=== PATIENT | male | born 1960 | race Caucasian/White ===

== ENCOUNTER 2019-05-09 12:11 | Emergency (ER) | payer MEDICAID, OTHER, SELFPAY ==
[~2019-05-09] VITALS: Ht 170.2 cm; Wt 69.4 kg
[2019-05-09 12:14] VITALS: BP 138/70
[2019-05-09 13:05] LABS: BASOPHILS # (AUTO) 0.03 x10^3/uL (0-0.1); BASOPHILS % (AUTO) 0 % (0-1); EOSINOPHILS # (AUTO) 0.02 x10^3/uL (0-0.4); EOSINOPHILS % (AUTO) 0 % (1-7); LYMPHOCYTES # (AUTO) 0.96 x10^3/uL (1-3.4); LYMPHOCYTES % (AUTO) 9 % (22-44); MD NO; MEAN CORPUSCULAR HEMOGLOBIN 31.1 pg (27.5-34.5); MEAN CORPUSCULAR HGB CONC 33.2 g/dL (33.2-36.2); MEAN CORPUSCULAR VOLUME 93.5 fL (81-97); MEAN PLATELET VOLUME 8.7 fL (7.4-10.4); MONOCYTES # (AUTO) 0.68 x10^3/uL (0.2-0.8); MONOCYTES % (AUTO) 6 % (2-9); NEUTROPHILS # (AUTO) 9.51 x10^3/uL (1.8-6.8); NEUTROPHILS % (AUTO) 85 % (42-75); PLATELET COUNT 206 x10^3/uL (130-400); RED BLOOD COUNT 4.68 x10^6/uL (4.38-5.82); RED CELL DISTRIBUTION WIDTH 12.9 % (9.4-14.8)
--- NOTE | 2019-05-09 13:15 | NUR ---
caddymaster: Pt ambulatory to ED room 23 from lobby at this time
[2019-05-09 13:16] LABS: ALBUMIN 3.5 g/dL (3.4-5.0); ANION GAP 7 mmol/L (5-15); CALCIUM 8.9 mg/dL (8.5-10.1); CHLORIDE 105 mmol/L (98-107); CREATININE 1.04 mg/dL (0.7-1.3)
[2019-05-09 13:19] LABS: TROPONIN I < 0.015 ng/mL (0.000-0.045)
--- NOTE | 2019-05-09 14:50 | NUR ---
radiosonde specialist: Pt states that he forgot to tell the MD that he is having UTI symptoms (painful & frequent urination), pt requested to provide urine sample, MD notified. Pt to be discharged after providing UA.
--- NOTE | 2019-05-09 14:59 | NUR ---
UA collected and sent to lab.
--- NOTE | 2019-05-09 15:11 | NUR ---
Patient/Caregiver given discharge instructions and they have confirmed that they understand the instructions. Patient ambulatory with steady gait.
[2019-05-09 15:14] LABS: MICROSCOPIC INDICATED
[2019-05-09 15:47] LABS: CULTURE INDICATED? NO
== END 2019-05-09 15:31 | disposition home or self-care (01) ==
LOC: ED 14:17
DX: J18.9 Pneumonia, unspecified organism (principal); I51.7 Cardiomegaly; E11.9 Type 2 diabetes mellitus without complications; F17.200 Nicotine dependence, unspecified, uncomplicated
CPT/HCPCS: 36415; 71046; 80048; 81001; 82040; 83880; 84484; 85025; 93005; 99284

== ENCOUNTER 2020-03-23 13:27 | Emergency (ER) | payer MEDICAID ==
[~2020-03-23] VITALS: Ht 170.2 cm; Wt 73.8 kg
[2020-03-23 14:49] LABS: BASOPHILS % (AUTO) 1 % (0-1); EOSINOPHILS % (AUTO) 1 % (1-7); LYMPHOCYTES % (AUTO) 20 % (22-44); MEAN CORPUSCULAR HEMOGLOBIN 31.1 pg (27.5-34.5); MEAN CORPUSCULAR HGB CONC 33.7 g/dL (33.2-36.2); MEAN PLATELET VOLUME 8.5 fL (7.4-10.4); MONOCYTES % (AUTO) 16 % (2-9); NEUTROPHILS % (AUTO) 63 % (42-75); PLATELET COUNT 193 x10^3/uL (130-400); RED BLOOD COUNT 4.94 x10^6/uL (4.38-5.82); RED CELL DISTRIBUTION WIDTH 12.9 % (9.4-14.8)
--- NOTE | 2020-03-23 14:49 | NUR ---
DIRECTOR OF RESEARCH AND DEVELOPMENT: PT TO ROOM FROM [facility]
[2020-03-23 14:54] LABS: MD NO
[2020-03-23 14:59] LABS: ANION GAP 3 mmol/L (5-15); CALCIUM 8.7 mg/dL (8.5-10.1); CHLORIDE 102 mmol/L (98-107); CREATININE 1.24 mg/dL (0.7-1.3)
[2020-03-23 15:00] LABS: ALANINE AMINOTRANSFERASE 40 U/L (12-78); ALBUMIN 3.8 g/dL (3.4-5.0)
[2020-03-23 15:09] LABS: ALKALINE PHOSPHATASE 74 U/L (45-117); BILIRUBIN,TOTAL 0.5 mg/dL (0.2-1.0); TOTAL PROTEIN 7.8 g/dL (6.4-8.2)
[2020-03-23 18:03] LABS: MICROSCOPIC INDICATED
[2020-03-23 19:23] VITALS: BP 118/76
== END 2020-03-23 19:37 | disposition home or self-care (01) ==
LOC: ED 15:14
DX: U07.1 COVID-19 (principal); E11.65 Type 2 diabetes mellitus with hyperglycemia; R06.02 Shortness of breath; M54.5 Low back pain; R30.0 Dysuria; R50.9 Fever, unspecified; R05 Cough; F17.210 Nicotine dependence, cigarettes, uncomplicated; Z72.9 Problem related to lifestyle, unspecified
CPT/HCPCS: 36415; 71045; 80053; 81001; 85025; 87635; 93005; 99285; 99406